=== PATIENT | female | born 1985 | race Two or more races ===

== ENCOUNTER 2019-01-01 15:55 | Outpatient (CLI) | payer OTHER ==
[~2019-01-01] VITALS: Ht 165.1 cm; Wt 80.0 kg
[2019-01-01 16:20] VITALS: BP 113/78
[2019-01-01 16:35] LABS: MICROSCOPIC INDICATED
[2019-01-01 16:52] LABS: BASOPHILS # (AUTO) 0.03 x10^3/uL (0-0.1); BASOPHILS % (AUTO) 0 % (0-1); EOSINOPHILS # (AUTO) 0.12 x10^3/uL (0-0.4); EOSINOPHILS % (AUTO) 1 % (1-7); LYMPHOCYTES # (AUTO) 1.82 x10^3/uL (1-3.4); LYMPHOCYTES % (AUTO) 19 % (22-44); MD NO; MEAN CORPUSCULAR HEMOGLOBIN 31.7 pg (27.0-34.8); MEAN CORPUSCULAR HGB CONC 32.6 g/dL (32.4-35.8); MEAN CORPUSCULAR VOLUME 97.3 fL (80-100); MEAN PLATELET VOLUME 8.7 fL (7.4-10.4); MONOCYTES # (AUTO) 0.73 x10^3/uL (0.2-0.8); MONOCYTES % (AUTO) 8 % (2-9); NEUTROPHILS # (AUTO) 7.04 x10^3/uL (1.8-6.8); NEUTROPHILS % (AUTO) 72 % (42-75); PLATELET COUNT 253 x10^3/uL (130-400); RED CELL DISTRIBUTION WIDTH 14.3 % (9.6-15.2)
[2019-01-01 17:07] LABS: INTERNATIONAL NORMALIZED RATIO 0.91 (0.93-1.1); PROTHROMBIN TIME 9.6 Seconds (9.6-11.5)
== END 2019-01-01 18:30 | disposition home or self-care (01) ==
LOC: LDOP 15:55
PROVIDERS: ATTEND Obstetrics & Gynecology
DX: O26.893 Other specified pregnancy related conditions, third trimester (principal); R10.9 Unspecified abdominal pain; Z3A.31 31 weeks gestation of pregnancy
CPT/HCPCS: 36415; 59025; 76815; 81001; 85025; 85384; 85460; 85610; 85730; 87086; 99201; G0463

== ENCOUNTER 2019-01-10 15:28 | Outpatient (CLI) | payer OTHER | END 2019-01-10 16:28 | disposition home or self-care (01) | LOC: LDOP 15:28 | PROVIDERS: ATTEND Obstetrics & Gynecology | DX: O26.893 Other specified pregnancy related conditions, third trimester (principal); R10.9 Unspecified abdominal pain; Z3A.39 39 weeks gestation of pregnancy | CPT/HCPCS: 59025; 99211; G0463 ==

== ENCOUNTER 2019-02-18 21:33 | Inpatient (IN) | payer OTHER ==
[~2019-02-18] VITALS: Ht 165.1 cm; Wt 84.1 kg
[2019-02-18 22:07] LABS: MICROSCOPIC NOT IND
[2019-02-18] MEDS ORDERED: TERBUTALINE 1 MG/ML, 1ML ONE (22:55)
[2019-02-18] MEDS ORDERED: TERBUTALINE 1 MG/ML, 1ML SQ ONE (23:00)
[2019-02-19] MEDS ORDERED: OXYTOCIN 30U/ 0.9% NaCL 500ML 500 ML IV ONE (00:17)
[2019-02-19] MEDS: D5%-LACTATED RINGERS 1,000 ML IV SCH ×3 (00:17→16:17)
[2019-02-19] MEDS ORDERED: NEWBORN KIT ONE (00:24)
[2019-02-19] MEDS ORDERED: MISOPROSTOL 200 MCG TABLET ONE (00:25)
[2019-02-19] MEDS ORDERED: LIDOCAINE 1%, 20ML ONE ×2 (00:25→03:34)
[2019-02-19] MEDS ORDERED: OXYTOCIN 30U/ 0.9% NaCL 500ML 0 ML ONE (00:25)
[2019-02-19] MEDS ORDERED: CALCIUM CARBONATE 500 MG TAB.CHEW PO PRN (00:30)
[2019-02-19] MEDS ORDERED: TERBUTALINE 1 MG/ML, 1ML SQ PRN (00:30)
[2019-02-19] MEDS ORDERED: FENTANYL PF 100 MCG/2ML IV PRN (00:30)
[2019-02-19] MEDS ORDERED: SODIUM CITRATE/CITRIC ACID 15 ML UDC PO PRN (00:30)
[2019-02-19] MEDS ORDERED: ONDANSETRON 2MG/ML, 2ML IVPush PRN (00:30)
[2019-02-19] MEDS ORDERED: METOCLOPRAMIDE 5 MG/ML, 2ML IVPush PRN (00:30)
[2019-02-19 00:45] LABS: BASOPHILS % (AUTO) 0 % (0-1); EOSINOPHILS # (AUTO) 0.02 x10^3/uL (0-0.4); EOSINOPHILS % (AUTO) 0 % (1-7); LYMPHOCYTES # (AUTO) 1.11 x10^3/uL (1-3.4); LYMPHOCYTES % (AUTO) 7 % (22-44); MD NO; MEAN CORPUSCULAR HEMOGLOBIN 32.5 pg (27.0-34.8); MEAN CORPUSCULAR HGB CONC 33.4 g/dL (32.4-35.8); MEAN CORPUSCULAR VOLUME 97.2 fL (80-100); MEAN PLATELET VOLUME 9.6 fL (7.4-10.4); MONOCYTES # (AUTO) 0.68 x10^3/uL (0.2-0.8); MONOCYTES % (AUTO) 4 % (2-9); NEUTROPHILS # (AUTO) 13.91 x10^3/uL (1.8-6.8); NEUTROPHILS % (AUTO) 89 % (42-75); PLATELET COUNT 194 x10^3/uL (130-400); RED BLOOD COUNT 3.95 x10^6/uL (3.82-5.3)
[2019-02-19] MEDS ORDERED: FENTANYL PF 100 MCG/2ML ONE (02:43)
[2019-02-19] MEDS: FENTANYL PF 100 MCG/2ML IVPush PRN ×2 (02:50→14:22)
[2019-02-19] MEDS ORDERED: FENTANYL/BUPIV./NS/PF 250 ML EPIDCONT ONE ×2 (03:11→03:34)
[2019-02-19] MEDS ORDERED: EPHEDRINE 50 MG/ML, 1ML IVPush PRN ×2 (04:00→04:30)
[2019-02-19] MEDS: LACTATED RINGERS 1,000 ML IV SCH ×5 (04:04→16:13)
[2019-02-19] MEDS ORDERED: FENTANYL/BUPIV./NS/PF 250 ML EPIDCONT SCH (04:04)
[2019-02-19] MEDS ORDERED: FENTANYL PF 500 MCG, BUPIVACAINE/PF 0.5%, 30ML 62.5 ML in SODIUM CHLORIDE 0.9% 177.5 ML EPIDCONT SCH (04:30)
[2019-02-19] MEDS ORDERED: LACTATED RINGERS 1,000 ML IVBOLUS PRN (04:30)
[2019-02-19] MEDS ORDERED: NALOXONE 0.4 MG/ML, 1ML IVPush PRN (04:30)
[2019-02-19] MEDS ORDERED: ACETAMINOPHEN 325 MG TABLET ONE (05:56)
[2019-02-19] MEDS ORDERED: ACETAMINOPHEN 325 MG TABLET PO PRN ×2 (06:00→09:00)
[2019-02-19] MEDS ORDERED: OXYTOCIN 30U/ 0.9% NaCL 500ML 500 ML IV PRN (07:06)
[2019-02-19 07:11] VITALS: BP 112/57
[2019-02-19] MEDS ORDERED: OXYTOCIN 30U/ 0.9% NaCL 500ML 500 ML ONE (07:18)
[2019-02-19] MEDS ORDERED: PREN1TAB60 PO (07:54)
[2019-02-19] MEDS ORDERED: OXYTOCIN 10 UNITS/ML, 1ML ONE (08:37)
[2019-02-19] MEDS: OXYTOCIN 30U/ 0.9% NaCL 500ML 500 ML IV SCH ×2 (08:57→20:00)
[2019-02-19] MEDS ORDERED: DOCUSATE 100 MG CAPSULE PO PRN (09:00)
[2019-02-19] MEDS: PRENATAL VIT/IRON/FA 1 EACH TABLET PO SCH (09:00)
[2019-02-19] MEDS ORDERED: MISOPROSTOL 200 MCG TABLET PR PRN (09:00)
[2019-02-19] MEDS ORDERED: ONDANSETRON 2MG/ML, 2ML IV PRN (09:00)
[2019-02-19] MEDS ORDERED: METHYLERGONOVINE 0.2 MG/ML IM PRN (09:00)
[2019-02-19] MEDS ORDERED: OXYcodone/APAP 5/325MG TABLET PO PRN ×2 (09:00)
[2019-02-19 09:34] LABS: MICROSCOPIC INDICATED
[2019-02-19 09:53] LABS: MEAN CORPUSCULAR HEMOGLOBIN 31.9 pg (27.0-34.8); MEAN CORPUSCULAR HGB CONC 33.1 g/dL (32.4-35.8); MEAN CORPUSCULAR VOLUME 96.2 fL (80-100); MEAN PLATELET VOLUME 9.1 fL (7.4-10.4); PLATELET COUNT 141 x10^3/uL (130-400); RED BLOOD COUNT 3.49 x10^6/uL (3.82-5.3)
[2019-02-19 09:56] LABS: CULTURE INDICATED? NO
[2019-02-19] MEDS ORDERED: GENTAMICIN PER PHARMACY MC PRN (10:00)
[2019-02-19] MEDS ORDERED: FERR324T5 PO (10:15)
[2019-02-19 10:17] LABS: MD YES
[2019-02-19 10:18] LABS: BAND#(MANUAL) 1.68 x10^3/uL; BANDS%(MANUAL) 17 % (0-7); LYMPHS% (MANUAL) 2 % (22-44); NRBC % (MANUAL) 1 % (0-1); SEG#(MANUAL) 8.02 x10^3/uL (1.8-6.8); SEGS% (MANUAL) 81 % (42-75)
[2019-02-19 10:19] LABS: <PLATELET ESTIMATE> ADEQUATE; <PLT MORPHOLOGY> NORMAL PLT MORPH; <RBC MORPHOLOGY> NORMAL
[2019-02-19] MEDS ORDERED: OXYTOCIN 10 UNITS/ML, 1ML IM ONE (10:30)
[2019-02-19] MEDS: AMPICILLIN 2 GM in SODIUM CHLORIDE 0.9% 100 ML IV SCH ×3 (10:47→22:03)
[2019-02-19] MEDS ORDERED: PHARMACOKINETIC MONITORING MC PRN (12:00)
[2019-02-19] MEDS ORDERED: PHARMACOKINETIC CONSULTATION MC ONE (12:00)
[2019-02-19] MEDS: GENTAMICIN 160 MG in SODIUM CHLORIDE 0.9% 50 ML IV SCH (12:32)
[2019-02-19 12:46] LABS: CREATININE 0.77 mg/dL (0.55-1.02)
[2019-02-19 13:13] VITALS: BP 103/67
[2019-02-19 14:21] VITALS: BP 106/67
[2019-02-19] MEDS ORDERED: AMPICILLIN 2 GM IVPB SCH (15:00)
[2019-02-19 16:45] VITALS: BP 108/68
[2019-02-19 18:00] LABS: MEAN PLATELET VOLUME 8.9 fL (7.4-10.4); PLATELET COUNT 155 x10^3/uL (130-400); RED BLOOD COUNT 3.25 x10^6/uL (3.82-5.3)
[2019-02-19 18:01] LABS: BASOPHILS # (AUTO) 0.01 x10^3/uL (0-0.1); BASOPHILS % (AUTO) 0 % (0-1); EOSINOPHILS % (AUTO) 0 % (1-7); LYMPHOCYTES # (AUTO) 0.95 x10^3/uL (1-3.4); LYMPHOCYTES % (AUTO) 5 % (22-44); MD SCAN; MONOCYTES # (AUTO) 0.79 x10^3/uL (0.2-0.8); MONOCYTES % (AUTO) 4 % (2-9); NEUTROPHILS # (AUTO) 18.92 x10^3/uL (1.8-6.8); NEUTROPHILS % (AUTO) 92 % (42-75)
[2019-02-19 20:00] VITALS: BP 110/65
[2019-02-20] MEDS: D5%-LACTATED RINGERS 1,000 ML IV SCH ×3 (00:17→16:17)
[2019-02-20] MEDS: LACTATED RINGERS 1,000 ML IV SCH ×3 (00:17→16:17)
[2019-02-20] MEDS: GENTAMICIN 160 MG in SODIUM CHLORIDE 0.9% 50 ML IV SCH ×2 (00:44→12:39)
[2019-02-20 00:48] VITALS: BP 102/66
[2019-02-20] MEDS: OXYTOCIN 30U/ 0.9% NaCL 500ML 500 ML IV SCH ×2 (04:57→14:57)
[2019-02-20] MEDS: AMPICILLIN 2 GM in SODIUM CHLORIDE 0.9% 100 ML IV SCH ×4 (05:23→23:00)
[2019-02-20 05:30] VITALS: BP 110/69
[2019-02-20 08:30] VITALS: BP 105/66
[2019-02-20] MEDS: PRENATAL VIT/IRON/FA 1 EACH TABLET PO SCH (09:00)
[2019-02-20 16:59] VITALS: BP 135/77
[2019-02-20] MEDS ORDERED: GENTAMICIN 160 MG in SODIUM CHLORIDE 0.9% 50 ML IV SCH (17:30)
[2019-02-20 19:30] VITALS: BP 127/79
[2019-02-20] MEDS ORDERED: GENTAMICIN 160 MG in SODIUM CHLORIDE 0.9% 50 ML IV ONE (20:00)
[2019-02-20] MEDS ORDERED: GENTAMICIN 150 MG in SODIUM CHLORIDE 0.9% 50 ML IV SCH (20:00)
[2019-02-21] MEDS: LACTATED RINGERS 1,000 ML IV SCH ×2 (00:17→08:17)
[2019-02-21] MEDS: D5%-LACTATED RINGERS 1,000 ML IV SCH ×2 (00:17→08:17)
[2019-02-21] MEDS: OXYTOCIN 30U/ 0.9% NaCL 500ML 500 ML IV SCH ×2 (00:57→10:57)
[2019-02-21] MEDS ORDERED: GENTAMICIN 150 MG in SODIUM CHLORIDE 0.9% 50 ML IV SCH (04:00)
[2019-02-21] MEDS: AMPICILLIN 2 GM in SODIUM CHLORIDE 0.9% 100 ML IV SCH ×2 (05:27→11:27)
[2019-02-21 07:45] VITALS: BP 104/67
[2019-02-21] MEDS: PRENATAL VIT/IRON/FA 1 EACH TABLET PO SCH (07:50)
[2019-02-21] MEDS ORDERED: SENN-92 PO (15:01)
[2019-02-21] MEDS ORDERED: IBUP-1222 PO (15:01)
[2019-02-21 17:00] VITALS: BP 135/60
== END 2019-02-21 17:35 | disposition home or self-care (01) | DRG 807 ==
LOC: LDOP 21:33 → LDIP 02-19 00:10 → 2NE 02-19 13:08 → 2NW 02-19 13:10
PROVIDERS: ADMIT Obstetrics & Gynecology; ATTEND Obstetrics & Gynecology
PROC: 10E0XZZ Delivery of Products of Conception, External Approach (ICD-10-PCS; principal; 2019-02-19)
PROC: 10907ZC Drainage of Amniotic Fluid, Therapeutic from Products of Conception, Via Natural or Artificial Opening (ICD-10-PCS; 2019-02-19)
PROC: 0HQ9XZZ Repair Perineum Skin, External Approach (ICD-10-PCS; 2019-02-19)
PROC: 3E0R3BZ Introduction of Anesthetic Agent into Spinal Canal, Percutaneous Approach (ICD-10-PCS; 2019-02-19)
PROC: 00HU33Z Insertion of Infusion Device into Spinal Canal, Percutaneous Approach (ICD-10-PCS; 2019-02-19)
PROC: 0T9B70Z Drainage of Bladder with Drainage Device, Via Natural or Artificial Opening (ICD-10-PCS; 2019-02-19)
DX: O76 Abnormality in fetal heart rate and rhythm complicating labor and delivery (principal); Z37.0 Single live birth; O70.0 First degree perineal laceration during delivery; Z3A.38 38 weeks gestation of pregnancy
CPT/HCPCS: 36415; J3490; J7121; 81001; 81003; 82565; 82962; 85025; 86850; 86900; 87040; 87070; 87075; 87086; 87205; 88307; G0378; J0290; J3010; J1580; J2590; J3105; J7120